=== PATIENT | female | born 1990 | race Two or more races ===

== ENCOUNTER 2017-09-09 19:37 | Emergency (ER) | payer SELFPAY ==
[~2017-09-09] VITALS: Ht 172.7 cm; Wt 98.0 kg
[2017-09-09] MEDS ORDERED: ACETAMINOPHEN 325MG TABLET PO STA (20:27)
[2017-09-09] MEDS ORDERED: SODIUM CHLORIDE 0.9% 1,000 ML IV ONE (20:27)
[2017-09-09] MEDS ORDERED: KETOROLAC 30MG/ML VIAL IV STA (20:27)
[2017-09-09 21:21] LABS: CLARITY URINE CLEAR (CLEAR); COLOR URINE YELLOW (YELLOW); HEMOGLOBIN. 12.4 g/dL (12.0-16.0); KETONES URINE TRACE (NEGATIVE); LEUKOCYTE ESTERASE URINE NEGATIVE (NEGATIVE); MEAN CORPUSCULAR HEMOGLOBIN 25.9 pg (28.0-32.0); MEAN CORPUSCULAR VOLUME 81.9 fL (81.0-99.0); MEAN PLATELET VOLUME 8.9 fl (7.4-10.4); NITRITE URINE NEGATIVE (NEGATIVE); OCCULT BLOOD URINE NEGATIVE (NEGATIVE); PH URINE 5.5 (4.5-8.0); PLATELET 193 x1000/uL (130-400); PROTEIN URINE TRACE (NEGATIVE); RED BLOOD CELL COUNT 4.76 mill/uL (4.2-5.4); RED CELL DISTRIBUTION WIDTH 15.1 % (11.6-14.6); SPECIFIC GRAVITY URINE 1.025 (1.005-1.030); UROBILINOGEN URINE 0.2 E.U./dL (0.2-1.0)
[2017-09-09 21:25] LABS: CHLORIDE 102 mEq/L (98-107)
[2017-09-09 22:13] LABS: PLATELET ESTIMATE NORMAL
[2017-09-09 23:39] VITALS: BP 120/70
== END 2017-09-10 01:04 | disposition home or self-care (01) ==
LOC: ER 19:37
DX: R50.9 Fever, unspecified (principal)
CPT/HCPCS: 36415; 71045; 80053; 81003; 81025; 84702; 85025; 96374; 99285; J1885; J7030